=== PATIENT | female | born 1985 | race Two or more races ===

== ENCOUNTER → 2025-07-05 | Outpatient (CLI) | payer MEDICAID, SELFPAY ==
--- NOTE | 2025-07-05 14:30 | XR_ITS ---
Examination: Diagnostic digital mammography, unilateral, left Computer aided detection 3-D breast Tomosynthesis, unilateral Date and time of exam: 07/05/2025 Comparisons: Baseline exam Indications: Diffuse left breast pain Technique: Nonmagnified MLO, CC views of the left breast have been obtained, reconstructed from 3-D Tomosynthesis images. R2 computer aided detection program utilized for evaluation of suspicious masses and/or abnormal calcifications. 3-D Tomosynthesis images obtained. Technologist: Findings: The breasts are heterogeneously dense, which may obscure small masses. 8 mm oval mass with partially indistinct borders left retroareolar region. Mass is centered 2.5 cm from the nipple on the MLO view. Otherwise, no evidence of abnormal masses or suspicious calcifications. Impression: 8 mm left retroareolar mass. Spot compression views and possible ultrasound evaluation recommended. BI-RADS category 0: Incomplete assessment; need additional imaging evaluation
== END | disposition home or self-care (01) ==
LOC: CDIM 14:34
PROVIDERS: Referring Provider Nurse Practitioner Family; Visit Provider Nurse Practitioner Family
DX: N63.42 Unspecified lump in left breast, subareolar (principal)
CPT/HCPCS: 77061; 77065; G0279

== ENCOUNTER → 2025-08-19 | Outpatient (CLI) | payer MEDICAID, SELFPAY ==
--- NOTE | 2025-08-19 15:00 | XR_ITS ---
Examination: Breast ultrasound, unilateral, left complete Date and time of exam: August 19, 2025 1406 hours INDICATIONS: Mammogram July 05, 2025 8 mm retroareolar mass left breast pain 6 months Technique: Real-time coley scale ultrasonographic imaging performed left breast including all 4 quadrants as well as nipple retroareolar and axillary region. Findings: 3:00 circumscribed nodule 10 x 8 mm 4:00 nodule lobular margins 9 x 6 mm 6:00 irregular nodule indistinct margins 10 x 5 mm 2616 mm lymph nodes IMPRESSION: BI-RADS Category 4: Suspicious for malignancy Suspicious nodule 6 o'clock position left breast, biopsy is needed to exclude breast carcinoma, this mass is amenable to ultrasound-guided breast biopsy for diagnosis
== END | disposition home or self-care (01) ==
LOC: CDIM 13:57
PROVIDERS: PCP Nurse Practitioner Family; Referring Provider Nurse Practitioner Family; Visit Provider Nurse Practitioner Family
DX: R92.342 Mammographic extreme density, left breast (principal); N63.25 Unspecified lump in the left breast, overlapping quadrants
CPT/HCPCS: 76641

== ENCOUNTER → 2025-09-26 | Outpatient (CLI) | payer MEDICAID, SELFPAY ==
[2025-09-23 13:20] LABS: Basophils # (Auto) 0.0 Thou/mm3 (0.0-0.2); Basophils % (Auto) 0 % (0-2.5); Eosinophils # (Auto) 0.2 Thou/mm3 (0.0-0.5); Eosinophils % (Auto) 2 % (0-10); Hematocrit 39.8 % (36.0-46.0); Hemoglobin 13.2 g/dL (12.0-16.0); Immature Granulocytes Auto 0.05 Thou/mm3 (0.00-0.00); Lymphocytes # (Auto) 2.0 Thou/mm3 (1.0-4.8); Lymphocytes % (Auto) 27 % (10-50); Mean Corpuscular HGB Conc 33.2 g/dl (31.0-37.0); Mean Corpuscular Hemoglobin 29.0 pg (25.0-35.0); Mean Corpuscular Volume 88 fL (80-100); Monocytes # (Auto) 0.5 Thou/mm3 (0.0-0.8); Monocytes % (Auto) 7 % (0-12); Neutrophils # (Auto) 4.8 Thou/mm3 (1.8-7.7); Neutrophils % (Auto) 64 % (37-80); Nucleated Red Blood Cell # 0.00 Thou/mm3 (0.00-0.00); Nucleated Red Blood Cell % 0 /100 WBC (0); Platelet Count 272 Thou/mm3 (140-440); RDW Standard Deviation 46.3 fL (36.4-46.3); Red Blood Count 4.55 Miln/mm3 (4.00-5.20); White Blood Count 7.6 Thou/mm3 (3.6-11.0)
[2025-09-23 13:25] LABS: HCG,Qualitative Serum Negative
[2025-09-23 13:34] LABS: INR 0.9 (0.9-1.3); Partial Thromboplastin Time 25.4 Seconds (22.0-36.0); Prothrombin Time 9.7 Seconds (9.0-12.2)
--- NOTE | 2025-09-26 10:30 | XR_ITS ---
Examinations: Ultrasound-guided percutaneous breast biopsy, left 6:00 nodule Approach sonography limited INDICATIONS: Left breast sonogram August 19, 2025 BI-RADS 4 suspicious nodule 6 o'clock position left breast. Exam date and time: September 26 2025, 11:39 a.m. Informed consent provided. Technique: A timeout was completed verifying correct patient, procedure, site, positioning, and special equipment if applicable Informed consent provided. The patient was placed in a supine position for the breast biopsy. Sonographic images of the breast were performed for localization of the suspicious nodule The patient's breast was prepped and draped in sterile fashion. Maximum sterile barrier technique, hand hygiene, ultrasound sterile technique 1% lidocaine was used to anesthetize the skin and breast adjacent to the suspicious nodule. Utilizing ultrasonographic guidance, 8 core biopsies were obtained of the suspicious nodule utilizing an 18-gauge BioPince needle. The specimens appears satisfactory. US guided breast biopsy marker placement. Estimated blood loss 3 cc. The patient tolerated the procedure well and there were no complications. Impression: Successful ultrasound-guided percutaneous breast biopsy, left breast 6:00 nodule. Ultrasound guided breast biopsy marker placement.
== END | disposition home or self-care (01) ==
LOC: SDIM 10:40
PROVIDERS: Radiology Diagnostic Radiology; PCP Physician Assistant; Referring Provider Physician Assistant; Visit Provider Physician Assistant
DX: N63.42 Unspecified lump in left breast, subareolar (principal)
CPT/HCPCS: 19083; 36415; 84703; 85025; 85610; 85730; A4648